=== PATIENT | female | born 1965 | race Caucasian/White ===

== ENCOUNTER 2017-04-21 18:00 | Emergency (ER) | payer OTHER, BC ==
[2017-04-21] MEDS ORDERED: NORMAL SALINE 10 ML SYRINGE FLUSH IVP PRN (18:12)
--- NOTE | 2017-04-21 18:40 | PDOC ---
Chest Pain HPI - General Chief Complaint: Chest Pain Stated Complaint: LEFT CHEST PAIN Date Seen by Provider: 04/21/17 Time Seen by Provider: 18:05 Source: Patient Exam Limitations: POSITIVE: No limitations Treatment Prior to Arrival: REPORTS: Aspirin (She took a full strength aspirin at 5:30) Nurse's Notes Reviewed & Considered: Yes - History of Present Illness Initial Comments: The patient is a 51-year-old female who presents to the emergency department with complaints of chest pain. She states that at approximately 5 PM this evening while standing at a computer she had onset of left-sided chest pain starting in her lower chest and radiating up towards the top underneath her left breast. She states that she has a history of prior pericarditis approximately 2 years ago and she states that her current pain is different than this. She does not have any associated palpitation. She thought maybe she had some increase shortness of breath although she was unsure if this was possibly related to anxiety. She denies any pain or swelling in her legs. She states that when she was diagnosed with pericarditis 2 years ago she had an elevated troponin at that time and underwent cardiac catheterization which was normal. She denies any history of hypertension or diabetes. She does have an elevated cholesterol and is currently not on medication. She does not use tobacco. She states that at its worst the pain level was about a 2 or 3 out of 10. Currently the pain is gone. - Patient Home Medications Home Medications: Home Medications Clotrimazole/Betamet Diprop [Lotrisone Cream] 0.5 gm TP TID #1 tube 08/25/14 Mesalamine [Lialda] 2.4 gm PO BID #180 tab 11/16/14 Valacyclovir HCl [Valtrex] 2,000 mg ORAL BID #16 tab 12/07/14 - Patient Allergies Allergies/Adverse Reactions: Allergies Allergy/AdvReac Type Severity Reaction Status Date / Time Penicillins Allergy HIVES Verified 04/21/17 18:35 Past Medical History Significant Family History: No pertinent family hx ROS - Limitations ROS Limitations: No Limitations Constitution: DENIES: Chills, Fever Cardiovascular: REPORTS: Chest Pain. DENIES: Heart Racing, Heart Palpitations Respiratory: REPORTS: Shortness Of Breath. DENIES: Hurts To Breathe Neurological: REPORTS: Denies Neuro Symptoms Gastrointestinal: REPORTS: Other (She did have some belching shortly after onset of pain, she generally does not have acid reflux symptoms) Musculoskeletal: REPORTS: Denies MS Symptoms. DENIES: Calf Pain, Lower Extremity Swelling Eyes: REPORTS: Denies Symptoms ENT: REPORTS: Denies Symptoms Skin: DENIES: Rash Chest Pain PE - General Appearance General Appearance: REPORTS: Alert, Cooperative, No Acute Distress - HEENT HEENT: POSITIVE: Head Inspection Nml, Eyes Inspection Nml, Ears Inspection Nml, Pharynx Inspect. Nml, PERRL, EOMI - Neck Neck: REPORTS: Normal Inspection. 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 Lab Results Reviewed: Yes Lab Results:: Laboratory Results 04/21/17 04/21/17 Range/Units 18:32 20:22 WBC 5.39 (4.8-10.8) 10^3/uL RBC 4.72 (4.20-5.40) 10^6/uL Hgb 13.1 (12.0-16.0) g/dL Hct 40.1 (37.0-47.0) % MCV 85.0 (81-99) FL MCH 27.8 (27-31) PG MCHC 32.7 L (33-37) g/dL RDW Std Deviation 44.0 (39-50) fL RDW Coeff of Tamika 14.5 (11.5-14.5) % Plt Count 238 (140-350) 10*3/uL MPV 9.9 (7.4-12.2) FL Immature Gran % (Auto) 0.4 (0-5) % Neut % (Auto) 51.7 (50-80) % Lymph % (Auto) 36.0 (10-50) % [place] % (Auto) 9.8 (5-15) % Eos % (Auto) 1.5 (0-8) % Baso % (Auto) 0.6 (0-1) % Immature Gran # (Auto) 0.02 10*3/UL Neut # (Auto) 2.79 10*3/UL Lymph # (Auto) 1.94 10*3/uL [place] # (Auto) 0.53 (0.3-0.8) 10*3/UL Eos # (Auto) 0.08 10*3/UL Baso # (Auto) 0.03 10*3/UL WBC Morphology Comment Normal morphology (NORM) Plt Morphology Comment Normal morphology (NORM) RBC Morph Comment Normal morphology (NORM) D-Dimer 0.38 (0.00-0.59) mg/L Sodium 141 (135-145) meq/L Potassium 3.8 (3.8-5.2) meq/L Chloride 106 (98-112) meq/L Carbon Dioxide 24 (23-33) meq/L Anion Gap 11 (5-20) BUN 15 (7-22) mg/dL Creatinine 0.8 (0.50-1.20) mg/dL Estimated GFR > 60 (>60 ml/min/1.73m(2)) BUN/Creatinine Ratio 18.75 (6-20) Glucose 90 (78-110) mg/dL Calculated Osmolality 292.0 (267-292) mOsm/kg Calcium 9.6 (8.7-10.7) mg/dL Total Bilirubin 0.6 (0.3-1.2) mg/dL AST 26 (8-39) IU/L ALT 47 (9-52) IU/L Alkaline Phosphatase 72 (38-126) IU/L CK-MB (CK-2) 0.62 (0.00-5.00) NG/ML Troponin I < 0.012 < 0.012 (< 0.040) ng/mL Total Protein 7.1 (6.1-8.0) g/dL Albumin 4.1 (3.5-4.8) g/dL Globulin 3.0 (2.50-4.10) g/dL Albumin/Globulin Ratio 1.30 (1.3-2.0) mg/g Amylase 46 (30-110) U/L Lipase 56 (23-300) IU/L EKG Interpreted/Reviewed By Me:: Yes EKG Interpretation:: POSITIVE: Normal Sinus Rhythm, Normal Rate, Normal Intervals, Normal QRS, Normal ST/T - Patient's Progress MDM / ED Course: The patient had artery taken aspirin 325 mg about a half an hour prior to arrival to the emergency department. Her initial EKG shows normal sinus rhythm with no acute ST segment or T-wave changes. Her initial blood work was also all essentially unremarkable with a normal d-dimer and normal troponin. The pains resolved here in the emergency room without any specific treatment. She was observed here in the emergency department and a repeat troponin was done at 8:30 PM and was also normal. Given 2 normal troponins, normal EKG and normal d- dimer combined with a cardiac catheterization 2 years ago that was normal it seems less likely that this pain is cardiac in etiology. She was advised return to the emergency room if she develops worsening pain, any worsening or change in symptoms. 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 - Consult Counseled: POSITIVE: Patient, RE: Lab Results, RE: Radiology Results, RE: DX, RE : Need for F/U Patient Care Time - Estimated PCT Patient Care Time (In Minutes): 35 Vital Signs - Recent Vital Signs Vital Signs: Vital Signs (Last 8 hours) Temp Pulse Pulse Resp BP Pulse Ox 04/21/17 20:15 60 04/21/17 18:08 96.8 F 74 20 132/81 96 - VS Reviewed Vital Signs Reviewed: Yes Discharge Clinical Impression: Chest pain Discharge Disposition: Discharged to Home Condition: Stable Patient Instructions Given at Discharge: Chest Pain (ED) Additional Instructions: The EKG did not show any evidence of heart attack in the blood work also did not reveal any evidence of heart damage in both of the blood tests. Given that she had a normal cardiac catheterization 2 years ago and your current findings are reassuring it seems less likely that this pain is heart related. The blood test also did not show any evidence of blood clots, infection or any other obvious cause of the pain. At this point it is unclear what is causing the pain. It could be in the chest wall itself or could possibly be some esophageal irritation related to hiatal hernia. Recommend that she return to the emergency room if he develops increased chest pain, shortness of breath, any worsening or change in symptoms. Keep your appointment with your mill operator next week. Follow Up With: NONE,NONE [Primary Care Provider] -
[2017-04-21 18:42] LABS: BASOPHILS # (AUTO) 0.03 10*3/UL; BASOPHILS % (AUTO) 0.6 % (0-1); EOSINOPHILS # (AUTO) 0.08 10*3/UL; EOSINOPHILS % (AUTO) 1.5 % (0-8); HEMATOCRIT 40.1 % (37.0-47.0); HEMOGLOBIN 13.1 g/dL (12.0-16.0); LYMPHOCYTES # (AUTO) 1.94 10*3/uL; MEAN CORPUSCULAR HEMOGLOBIN 27.8 PG (27-31); MEAN CORPUSCULAR HGB CONC 32.7 g/dL (33-37); MEAN PLATELET VOLUME 9.9 FL (7.4-12.2); MONOCYTES # (AUTO) 0.53 10*3/UL (0.3-0.8); MONOCYTES % (AUTO) 9.8 % (5-15); NEUTROPHILS # (AUTO) 2.79 10*3/UL; NEUTROPHILS % (AUTO) 51.7 % (50-80); RED BLOOD COUNT 4.72 10^6/uL (4.20-5.40)
[2017-04-21 18:43] LABS: PLATELET MORPHOLOGY COMMENT NORMAL MORPHOLOGY (NORM); RBC MORPHOLOGY COMMENT NORMAL MORPHOLOGY (NORM); WBC MORPHOLOGY COMMENT NORMAL MORPHOLOGY (NORM)
[2017-04-21 18:48] LABS: BLOOD UREA NITROGEN 15 mg/dL (7-22); BUN/CREATININE RATIO 18.75 (6-20); CALCIUM 9.6 mg/dL (8.7-10.7); EST GLOMERULAR FILTRATION > 60 (>60 ml/min/1.73m(2)); LIPASE 56 IU/L (23-300); SERUM ALBUMIN 4.1 g/dL (3.5-4.8)
[2017-04-21 18:58] LABS: CREATINE KINASE MB 0.62 NG/ML (0.00-5.00); TROPONIN I < 0.012 ng/mL (< 0.040)
--- NOTE | 2017-04-21 20:16 | EKG ---
[address] [address] Measurements Intervals [place] Rate: 79 P: 32 [place]: 200 QRS: -11 QRSD: 90 T: 57 QT: 361 QTc: 396 Interpretive Statements SINUS RHYTHM POSSIBLE INFERIOR MYOCARDIAL INFARCTION [30 ms Q WAVE IN II/aVF], OF INDETERMINATE AGE INTERPRETATION BASED ON A DEFAULT AGE OF 40 YEARS No previous ECG available for comparison Electronically Signed On 04-22-17 11:16:20 MDT by Austin Brian MD [email or web address]
--- NOTE | 2017-04-21 20:18 | DI ---
AP CHEST X-RAY, 04/21/2017 6:12 PM : Clinical History: Chest pain. Previous Exam: None at this facility. There is no acute soft tissue or bony abnormality. Heart size is normal. Lungs are clear. Mediastinal structures are normal. There are no pulmonary nodules. Reading: Normal chest x-ray.
[2017-04-21 23:41] VITALS: RESP 20; TEMP 96.8
== END 2017-04-21 21:12 | disposition home or self-care (01) ==
LOC: ER 18:00
DX: R07.9 Chest pain, unspecified (principal); R06.02 Shortness of breath
CPT/HCPCS: 36415; 71010; 80053; 82150; 82553; 83690; 84484; 85025; 85379; 93005; 93010; 99284

== ENCOUNTER → 2017-05-29 | Outpatient (CLI) | payer OTHER, BC ==
--- NOTE | 2017-05-29 09:21 | DI ---
THYROID ULTRASOUND, 05/29/2017 8:30 AM Clinical History: Hyperparathyroidism. Previous Exam: None. Scans are performed through both lobes of the thyroid gland in multiple projections with the high res olution linear array probe. Color Doppler ultrasound is also performed. Both lobes of the thyroid gland are of normal size. The right and left lobes measure 13 x 15 x 41 mm, and 11 x 12 x 40 mm, in the AP, transverse, and longitudinal dimensions, respectively. The sonograph ic texture is normal. There is no solid or cystic mass noted in either lobe or in the isthmus. There is no evidence of a nodule in the upper or lower pole of either lobe to indicate an enlarged parathyr oid gland. Readin. Normal thyroid ultrasound. No definite enlarged parathyroid gland is noted. 2. If further evaluation is required, then a technetium CT SPECT parathyroid scan can be performed.
== END ==
LOC: US 08:05
PROVIDERS: ATTEND Surgery
DX: E21.3 Hyperparathyroidism, unspecified (principal)
CPT/HCPCS: 76536